=== PATIENT | female | born 1985 | race Caucasian/White ===

== ENCOUNTER → 2023-11-11 10:29 | Outpatient (REF) | payer BC, SELFPAY ==
[2023-11-12 20:09] LABS: Calprotectin, Fecal 263 ug/g (<=49)
== END ==
LOC: REG 10:29
PROVIDERS: ATTENDING PHYSICIAN Internal Medicine; FAMILY PHYSICIAN Family Medicine
DX: K50.90 Crohn's disease, unspecified, without complications (principal)
CPT/HCPCS: 83993

== ENCOUNTER → 2024-01-07 06:33 | Day surgery (SDC) | payer BC, SELFPAY | LOC: GI 06:33 | PROVIDERS: ATTENDING PHYSICIAN Internal Medicine | DX: K52.9 Noninfective gastroenteritis and colitis, unspecified (principal); K63.89 Other specified diseases of intestine; K64.9 Unspecified hemorrhoids; K29.50 Unspecified chronic gastritis without bleeding; D51.0 Vitamin B12 deficiency anemia due to intrinsic factor deficiency; K44.9 Diaphragmatic hernia without obstruction or gangrene; Q45.3 Other congenital malformations of pancreas and pancreatic duct; R76.8 Other specified abnormal immunological findings in serum | CPT/HCPCS: 45380; 43239; 88305; 88342 ==

== ENCOUNTER → 2024-01-18 10:23 | Outpatient (REF) | payer BC, SELFPAY | LOC: WDC 10:23 | PROVIDERS: ATTENDING PHYSICIAN Surgery | DX: Z12.31 Encounter for screening mammogram for malignant neoplasm of breast (principal) | CPT/HCPCS: 77063; 77067 ==

== ENCOUNTER → 2024-01-22 07:24 | Outpatient (REF) | payer BC, SELFPAY | LOC: REG 07:24 | PROVIDERS: ATTENDING PHYSICIAN Internal Medicine; FAMILY PHYSICIAN Internal Medicine | DX: R19.5 Other fecal abnormalities (principal); R15.2 Fecal urgency | CPT/HCPCS: 36415; 87177; 87209; 87328; 87329 ==

== ENCOUNTER → 2024-04-25 12:25 | Outpatient (REF) | payer BC, SELFPAY ==
[2024-04-25 13:47] LABS: % Basophils 0.7 % (0-2); % Immature Granulocytes 0.2 % (0-0.5); % Lymphocytes 35.8 % (20.5-51.1); % Monocytes 7.8 % (1.7-9.3); % Neutrophils 54.5 % (42.2-75.2); Absolute Basophils 0.1 10^3/uL (0-0.2); Absolute Eosinophils 0.1 10^3/uL (0-0.7); Absolute Lymphocytes 3.2 10^3/uL (1.2-3.4); Absolute Monocytes 0.7 10^3/uL (0.1-0.6); Absolute Neutrophils 4.8 10^3/uL (1.4-6.5); Hematocrit 38.4 % (37.0-47.0); Hemoglobin 12.9 g/dL (12.0-16.0); Mean Corp Hgb Conc. 33.6 g/dL (33.0-37.0); Mean Corpuscular Hgb 29.2 pg (27.0-31.0); Mean Corpuscular Volume 86.9 fL (81.0-99.0); Mean Platelet Volume 9.1 fL (7.4-10.4); Nucleated Red Blood Cells % 0 %; Platelet Count 316 10^3/uL (130-400); Red Blood Cell Count 4.42 10^6/uL (4.20-5.40); Red Cell Dist. Width 12.2 % (11.5-14.5); White Blood Cell Count 8.8 10^3/uL (4.8-10.8)
[2024-04-25 15:40] LABS: ALT (SGPT) 20 U/L (0-35); AST (SGOT) 24 U/L (14-36); Albumin 4.7 g/dl (3.5-5.0); Alkaline Phosphatase 62 U/L (38-126); Direct Bilirubin 0.1 mg/dl (0.0-0.4); Total Bilirubin 0.7 mg/dl (0.2-1.3); Total Protein 6.9 g/dl (6.3-8.2)
[2024-04-25 15:57] LABS: Vitamin D, 25-OH*** 53.8 ng/mL (30-80)
[2024-04-25 16:10] LABS: TSH Reflex To Free T4 1.78 uIU/ml (0.47-4.68)
== END ==
LOC: REG 12:25
PROVIDERS: ATTENDING PHYSICIAN Psychiatry & Neurology Neurology; FAMILY PHYSICIAN Family Medicine
DX: Z51.81 Encounter for therapeutic drug level monitoring (principal); E06.3 Autoimmune thyroiditis
CPT/HCPCS: 36415; 80076; 82306; 84443; 85025

== ENCOUNTER → 2024-08-11 09:28 | Outpatient (REF) | payer BC, SELFPAY | LOC: WDC 09:28 | PROVIDERS: ATTENDING PHYSICIAN Surgery | DX: R92.2 Inconclusive mammogram (principal) | CPT/HCPCS: 76641 ==

== ENCOUNTER → 2024-11-03 09:35 | Outpatient (REF) | payer BC, SELFPAY | LOC: MRI 3T 09:35 | PROVIDERS: ATTENDING PHYSICIAN Orthopaedic Surgery Orthopaedic Surgery of the Spine; FAMILY PHYSICIAN Family Medicine | DX: G35 Multiple sclerosis (principal) | CPT/HCPCS: 70551; 72141; 72148 ==

== ENCOUNTER → 2024-11-07 07:47 | Outpatient (REF) | payer BC, SELFPAY | LOC: WDC 07:47 | PROVIDERS: ATTENDING PHYSICIAN Surgery | DX: R92.8 Other abnormal and inconclusive findings on diagnostic imaging of breast (principal) | CPT/HCPCS: 76642 ==

== ENCOUNTER → 2024-12-02 11:20 | Outpatient (REF) | payer BC, SELFPAY ==
[2024-12-02 13:46] LABS: Free T4 1.15 ng/dl (0.78-2.19)
[2024-12-02 14:01] LABS: TSH 2.06 uIU/ml (0.47-4.68)
[2024-12-02 14:19] LABS: Vitamin B12 271 pg/ml (239-931)
[2024-12-02 14:28] LABS: Glycohemoglobin (HgbA1c) 5.1 % (4.0-5.6)
== END ==
LOC: REG 11:20
PROVIDERS: ATTENDING PHYSICIAN Internal Medicine; FAMILY PHYSICIAN Family Medicine; REFERRING PHYSICIAN Psychiatry & Neurology Neurology
DX: E03.4 Atrophy of thyroid (acquired) (principal); Q54.9 Hypospadias, unspecified; R20.2 Paresthesia of skin
CPT/HCPCS: 36415; 82607; 82784; 83036; 83516; 83521; 83921; 84155; 84165; 84207; 84425; 84439; 84443; 86038; 86225; 86235; 86334; 86340

== ENCOUNTER → 2025-01-18 11:32 | Outpatient (REF) | payer BC, SELFPAY | LOC: WDC 11:32 | PROVIDERS: ATTENDING PHYSICIAN Internal Medicine | DX: Z12.31 Encounter for screening mammogram for malignant neoplasm of breast (principal) | CPT/HCPCS: 77063; 77067 ==

== ENCOUNTER → 2025-02-15 07:55 | Outpatient (REF) | payer BC, SELFPAY ==
[2025-02-15 10:09] LABS: Urine Albumin 1+ (Neg - Trace); Urine Bilirubin Negative (Negative); Urine Character Clear (Clear); Urine Color Yellow; Urine Glucose Negative (Negative); Urine Ketone Negative (Negative); Urine Leukocyte Negative (Negative); Urine Nitrite Negative (Negative); Urine Occult Blood Negative (Negative); Urine Urobilinogen Negative (Neg - 1+)
[2025-02-15 10:27] LABS: Urine Bacteria Few (Negative); Urine Mucus Few; Urine Red Blood Cell 0-2 /HPF (0-2); Urine White Cell 0-2 /HPF (0-5)
== END ==
LOC: REG 07:55
PROVIDERS: ATTENDING PHYSICIAN Internal Medicine
DX: R30.0 Dysuria (principal)
CPT/HCPCS: 81003; 81015

== ENCOUNTER → 2025-04-06 14:09 | Outpatient (REF) | payer BC, SELFPAY ==
[2025-04-06 17:22] LABS: Urine Character Clear (Clear)
[2025-04-06 18:00] LABS: Urine Red Blood Cell 0-2 /HPF (0-2); Urine Squamous Cell 0-2 /LPF (Few); Urine Urothelial Cell 0-2 /LPF (FEW); Urine White Cell 0-2 /HPF (0-5)
== END ==
LOC: CLAB 14:09
PROVIDERS: ATTENDING PHYSICIAN Urology
DX: N31.9 Neuromuscular dysfunction of bladder, unspecified (principal)
CPT/HCPCS: 81003; 81015

== ENCOUNTER → 2025-05-08 14:12 | Outpatient (REF) | payer BC, SELFPAY | LOC: WDC 14:12 | PROVIDERS: ATTENDING PHYSICIAN Surgery; FAMILY PHYSICIAN Internal Medicine | DX: R92.8 Other abnormal and inconclusive findings on diagnostic imaging of breast (principal) | CPT/HCPCS: 76642 ==

== ENCOUNTER → 2025-06-20 10:42 | Outpatient (REF) | payer BC, SELFPAY | LOC: RAD 10:42 | PROVIDERS: ATTENDING PHYSICIAN Urology; FAMILY PHYSICIAN Internal Medicine | DX: N31.9 Neuromuscular dysfunction of bladder, unspecified (principal); N30.10 Interstitial cystitis (chronic) without hematuria; M62.89 Other specified disorders of muscle; R31.29 Other microscopic hematuria | CPT/HCPCS: 76770; 76856 ==

== ENCOUNTER 2025-07-20 06:31 | Outpatient (RCR) | payer BC, SELFPAY | END 2025-07-20 23:59 | disposition home or self-care (01) | LOC: RPT 06:31 | PROVIDERS: ATTENDING PHYSICIAN Urology; FAMILY PHYSICIAN Internal Medicine | DX: N31.9 Neuromuscular dysfunction of bladder, unspecified (principal); N30.10 Interstitial cystitis (chronic) without hematuria; M62.89 Other specified disorders of muscle; K59.00 Constipation, unspecified | CPT/HCPCS: 97163; 97530 ==

== ENCOUNTER 2025-08-10 10:30 | Outpatient (RCR) | payer BC, SELFPAY | END 2025-08-10 23:59 | disposition home or self-care (01) | LOC: RPT 10:30 | PROVIDERS: ATTENDING PHYSICIAN Urology; FAMILY PHYSICIAN Internal Medicine | DX: N31.9 Neuromuscular dysfunction of bladder, unspecified (principal); N30.10 Interstitial cystitis (chronic) without hematuria; M62.89 Other specified disorders of muscle; K59.00 Constipation, unspecified; Z73.6 Limitation of activities due to disability; G35.D Multiple sclerosis, unspecified; R39.15 Urgency of urination; R10.20 Pelvic and perineal pain unspecified side | CPT/HCPCS: 97110; 97112; 97140; 97530 ==

== ENCOUNTER → 2025-08-22 08:45 | Outpatient (REF) | payer BC, SELFPAY ==
[2025-08-22 09:21] LABS: Hematocrit 41.2 % (37.0-47.0); Hemoglobin 13.3 g/dL (12.0-16.0); Mean Corp Hgb Conc. 32.3 g/dL (33.0-37.0); Mean Corpuscular Volume 91.2 fL (81.0-99.0); Nucleated Red Blood Cells % 0 %; Platelet Count 273 10^3/uL (130-400); Red Cell Dist. Width 12.5 % (11.5-14.5)
[2025-08-22 10:00] LABS: ALT (SGPT) 22 U/L (0-35); AST (SGOT) 25 U/L (14-36); Albumin 4.9 g/dl (3.5-5.0); Alkaline Phosphatase 53 U/L (38-126); Blood Urea Nitrogen 13 mg/dl (7-17); Calcium 9.6 mg/dl (8.4-10.2); Carbon Dioxide 28 mmol/L (22-30); Chloride 104 mmol/L (98-107); Glucose 91 mg/dl (70-99); Potassium 3.9 mmol/L (3.5-5.1); Sodium 138 mmol/L (135-145); Total Protein 7.3 g/dl (6.3-8.2); Very Low Density Lipoprotein 11 mg/dl (0-30); eGFR > 60.00
[2025-08-22 10:09] LABS: Vitamin D, 25-OH*** 52.5 ng/mL (30-80)
[2025-08-22 10:11] LABS: HDL Cholesterol 109 mg/dl; LDL Cholesterol, Calculated 97 mg/dl
[2025-08-22 12:02] LABS: FSH 8.9 mIU/ml
[2025-08-24 21:19] LABS: % Natural Killer Cells 15 % (4-26); CD19 % of Cells (B-cells) 0 % (6-23); CD19 Absolute Count 1 cells/uL (91-610); CD3 % of Cells (Total T-cells) 85 % (62-87); CD3 Absolute Count 1809 cells/uL (570-2400); CD4 % of Cells Analyzed 67 % (32-64); CD4 Absolute Count 1423 cells/uL (430-1800); CD8 % of Cells Analyzed 18 % (15-46)
== END ==
LOC: REG 08:45
PROVIDERS: ATTENDING PHYSICIAN Obstetrics & Gynecology; FAMILY PHYSICIAN Internal Medicine; OTHER PHYSICIAN Psychiatry & Neurology Neurology
DX: N95.1 Menopausal and female climacteric states (principal); Z00.00 Encounter for general adult medical examination without abnormal findings; E06.3 Autoimmune thyroiditis; E06.9 Thyroiditis, unspecified; Z51.81 Encounter for therapeutic drug level monitoring; E55.9 Vitamin D deficiency, unspecified
CPT/HCPCS: 36415; 80053; 80061; 82248; 82306; 82670; 83001; 84146; 84270; 84402; 84403; 84436; 84439; 85025; 86355; 86357; 86359; 86360

== ENCOUNTER → 2025-09-07 09:41 | Outpatient (REF) | payer BC, SELFPAY ==
--- NOTE | 2025-09-07 13:32 | OID.BR.INTR ---
[facility] Breast Navigator - Initial
- -
Date of Contact: 09/07/25
Met with patient. Patient given written information on navigator services. Will follow up as needed per protocol.
== END ==
LOC: WDC 09:41
PROVIDERS: ATTENDING PHYSICIAN Surgery; FAMILY PHYSICIAN Internal Medicine; REFERRING PHYSICIAN Obstetrics & Gynecology
DX: R92.30 Dense breasts, unspecified (principal); N63.11 Unspecified lump in the right breast, upper outer quadrant
CPT/HCPCS: 19083; 76641; 88305; 88342; 88360; A4648